=== PATIENT | male | born 1995 | race Caucasian/White ===

== ENCOUNTER 2024-06-11 16:16 | Emergency (ER) | payer MEDICAID, SELFPAY ==
[2024-06-11 16:36] VITALS: BP 122/81; PULSE 91; RESP 16; TEMP 36.9; O2SAT 98; BMI 32.5
--- NOTE | 2024-06-11 17:20 | EDNOTE_ITS ---
<Statement entered by Joelle Ramos MD - 06/20/24 18:12> As co-signing physician, I was present and available for consult prn. I concur with the plan and care as documented by the midlevel provider. ED Ear RME/HPI General Chief complaint: Ear Stated complaint: BLOOD COMING FROM RIGHT EAR TODAY Time Seen by Provider: 06/11/24 16:54 Source: patient Arrival date/time: 06/11/24 16:16 This is a 28-year-old male who presents to the emergency department with co mplaints of serous bloody drainage from his right ear today. Patient does report history of recurrent ear infections has an appointment with his ENT next week. He does report he noticed blood in his canal prompting his ED visit today. Denies any trauma or fever. Mode of arrival: ambulatory Related Data Home Medications ?Medication ?Instructions ?Recorded ?Confirmed lisinopril 20 1 tab PO QDAY 06/29/20 09/16/20 mg-hydrochlorothiazide 25 mg tablet hydroxyzine HCl 25 mg tablet 25 mg PO [id number] PRN Anxiety 09/16/20 09/16/20 Previous Rx's ?Medication ?Instructions ?Recorded hydrocodone 5 mg-acetaminophen 325 1 tab PO BID PRN pain #10 tabs 11/08/21 mg tablet ibuprofen 800 mg tablet 800 mg PO TID PRN pain #30 tabs 11/08/21 baclofen 10 mg tablet 10 mg PO TID #20 tabs 01/13/22 diclofenac sodium 1 % topical gel 2 g topical QID #30 grams 01/13/22 dextromethorphan-guaifenesin ER 60 1 tab PO Q12H #20 tabs 10/26/22 mg-1,200 mg tab,extend release,12hr (Mucinex DM) ibuprofen 600 mg tablet 600 mg PO Q6H PRN fever or pain 10/26/22 #30 tabs albuterol sulfate 90 mcg/actuation 2 puff inhalation Q6H PRN 11/07/23 aerosol inhaler (Ventolin HFA) shortness of breath or wheezing #8.5 grams ipratropium bromide 17 2 puff inhalation Q8H #12.9 grams 11/07/23 mcg/actuation HFA aerosol inhaler albuterol sulfate 90 mcg/actuation 1 inh inhalation QID PRN shortness 01/21/24 aerosol inhaler of breath or wheezing #6.7 grams methylprednisolone 4 mg tablets in 4 mg PO .as directed #21 tabs 01/21/24 a dose pack (Medrol (Dickson)) amoxicillin 875 mg-potassium 1 tab PO BID #14 tabs 06/11/24 clavulanate 125 mg tablet Allergies Allergy/AdvReac Type Severity Reaction Status Date / Time No Known Allergies Allergy Verified 06/11/24 16:18 Review of Systems Review of Systems Systems Reviewed: All systems reviewed, normal except as documented Narrative Review of Systems: Gen: No fever, no chills, no weight loss EYES: No discharge, no visual changes, no pain HEENT: no ear pain, no congestion, no sore throat, Drainage from ear PULM: No shortness of breath, no cough, no congestion CV: No chest pain, no dyspnea on exertion, no palpitations GI: No nausea, no vomiting, no diarrhea, no pain, no constipation : No frequency, no urgency,? no dysuria Musc/skel: No joint pain, no back pain Skin: No rash? Psyc: No hallucinations, no depression Heme/Lymph: No easy bleeding or bruising tendencies Neuro: No weakness, no headache ED Exam Narrative Physical exam: General: Sittiing in Exam table in no acute distress, answering questions appropriately HENT: normocephalic, atraumatic, EOMI, PERRLA, moist mucous membranes, right TM bloody serous Chest: chest wall is nontender Cardiac: regular rate and rhythm, normal S1 and S2, no murmurs, rubs, or gallops, capillary refill ?2 seconds Pulmonary: clear to auscultation bilaterally, no wheezing, crackles, or rhonchi Abdominal: active bowel sounds, soft, nontender, nondistended Neuro: A&OX3, CN II-XII intact, sensation grossly intact bilaterally in UE and LE. Skin: no rashes, no ecchymosis Ext: no lower extremity edema Course Quality Measures none Vital Signs Vital signs: Vital Signs Temperature 98.4 F 06/11/24 16:36 Pulse Rate 91 06/11/24 16:36 Respiratory Rate 16 06/11/24 16:36 Blood Pressure 122/81 06/11/24 16:36 Pulse Oximetry (%) 98 06/11/24 16:36 Oxygen Delivery Method Room Air 06/11/24 16:36 Ear MDM Narrative MDM Narrative:: 28-year-old male history of recurrent ear infections today has a bloody TM we will treat empirically for otitis media with possible rupture. Advised to keep his ENT appointment this following up week return to the emergency department this any worsening symptoms or change in condition. Patient data External records reviewed:: [facility] previous records Clinical information provided by:: patient Social determinants that could affect healthcare access:: none Patient has the following chronic illnesses:: none How is presenting disease/condition affected by chronic disease/condition?: no chronic disease Evaluation data The following diagnostics were reviewed and interpreted by me:: other (specify) Lab and/or radiology exams considered but not ordered:: none Interpretation Summary: none Medications / Prescriptions Medications or Prescriptions considered but not ordered:: none Medication administrations:: none Consultations Consultation(s) initiated? (list below): No Diagnosis Ear Differential Diagnosis: other Most likely diagnosis given after review of the tests above:: Ruptured eardrum, right Admission Indicated Admission indicated?: not indicated Explain why admission is indicated or not indicated:: none Admission Request Was there a request for admission?: No Disposition Plan Disposition Plan: Discharge Discharge Attestation Discharge Attestation: The patient and all family members were given an opportunity to ask questions and understood the discharge instructions. Discharge instructions specifically effects, indications for sooner follow up or return to the emergency department, and the expected course of current diagnosis. Patient condition: Stable Discharge Plan Plan Patient Disposition: HOME (Self Care) Patient condition on transfer: Stable Prescriptions/Referrals Prescriptions/Med Rec: New amoxicillin-pot clavulanate 875-125 mg tablet 1 tab PO BID Qty: 14 0RF No Action lisinopril-hydrochlorothiazide 20-25 mg Tablet 1 tab PO QDAY hydroxyzine HCl 25 mg tablet 25 mg PO [id number] PRN (Reason: Anxiety) Patient Comments: TAKE ONE TABLET BY MOUTH EVERY 8 HOURS NEEDED diclofenac sodium 1 % gel 2 g topical QID Qty: 30 0RF Rx Instructions: apply to single elbow, wrist or hand; for hand includes palm/fingers/back of hand baclofen 10 mg tablet 10 mg PO TID Qty: 20 0RF ibuprofen 800 mg tablet 800 mg PO TID PRN (Reason: pain) Qty: 30 0RF hydrocodone-acetaminophen 5-325 mg tablet 1 tab PO BID MDD 10 PRN (Reason: pain) Qty: 10 0RF methylprednisolone [Medrol (Dickson)] 4 mg tablets,dose pack 4 mg PO .as directed Qty: 21 0RF albuterol sulfate 90 mcg/actuation HFA aerosol inhaler 1 inh inhalation QID PRN (Reason: shortness of breath or wheezing) Qty: 6.7 0RF dextromethorphan-guaifenesin [Mucinex DM] 60-1,200 mg tablet extended release 12 hr 1 tab PO Q12H Qty: 20 0RF ibuprofen 600 mg tablet 600 mg PO Q6H PRN (Reason: fever or pain) Qty: 30 0RF albuterol sulfate [Ventolin HFA] 90 mcg/actuation HFA aerosol inhaler 2 puff inhalation Q6H PRN (Reason: shortness of breath or wheezing) Qty: 8.5 0RF ipratropium bromide 17 mcg/actuation HFA aerosol inhaler 2 puff inhalation Q8H Qty: 12.9 0RF Problem List Clinical Impression: Eardrum rupture, right Patient/Caregiver Discharge Instructions Discharge Activity: activity as tolerated Education Materials: Ruptured Eardrum Additional Instructions: - Most likely you have a ruptured tympanic membrane. Please start your antibiotic to decrease risk of infection. Keep your appointment with your ENT for further follow-up and care. Return to the emergency department you have any worsening symptoms or change in condition. Print Language: Burkinan Stand Alone Forms: [facility] Award Info., Patient Portal Info Letter PA/LILLIAN Supervising Physician PA/LILLIAN Supervising Physician: Dr. Gomes
== END 2024-06-11 18:53 | disposition home or self-care (01) ==
LOC: SERX 17:30
PROVIDERS: Emergency Provider Emergency Medicine; PCP Nurse Practitioner Family
DX: H66.91 Otitis media, unspecified, right ear (principal); H72.91 Unspecified perforation of tympanic membrane, right ear
CPT/HCPCS: 99281